=== PATIENT | male | born 1945 | race Caucasian/White ===

== ENCOUNTER → 2019-12-01 09:38 | Outpatient (BNVA) | payer MEDICARE, OTHER, SELFPAY | PROVIDERS: Family Provider Family Medicine; PCP Family Medicine; Visit Provider Family Medicine | DX: E11.9 Type 2 diabetes mellitus without complications (principal); E03.9 Hypothyroidism, unspecified; N39.3 Stress incontinence (female) (male); R35.1 Nocturia | CPT/HCPCS: 81001; 82044; 84443 ==

== ENCOUNTER → 2019-12-02 12:31 | Outpatient (BNVA) | payer MEDICARE, OTHER, SELFPAY | PROVIDERS: Family Provider Family Medicine; PCP Family Medicine; Visit Provider Family Medicine | DX: E11.9 Type 2 diabetes mellitus without complications (principal); E03.9 Hypothyroidism, unspecified; N39.3 Stress incontinence (female) (male); R35.1 Nocturia | CPT/HCPCS: G0103 ==

== ENCOUNTER → 2020-05-10 10:30 | Outpatient (BNVA) | payer MEDICARE, OTHER, SELFPAY | PROVIDERS: Family Provider Family Medicine; PCP Family Medicine; Visit Provider Family Medicine | DX: E11.9 Type 2 diabetes mellitus without complications (principal); E03.9 Hypothyroidism, unspecified | CPT/HCPCS: 80053; 82043; 83036; 84443; 87086 ==

== ENCOUNTER → 2020-05-14 10:10 | Outpatient (BNVA) | payer MEDICARE, OTHER, SELFPAY | PROVIDERS: Family Provider Family Medicine; PCP Family Medicine; Visit Provider Nurse Practitioner Family | DX: N39.0 Urinary tract infection, site not specified (principal); R35.0 Frequency of micturition; K59.00 Constipation, unspecified; M54.5 Low back pain | CPT/HCPCS: 81000 ==

== ENCOUNTER → 2020-05-23 14:24 | Outpatient (BNVA) | payer MEDICARE, OTHER, SELFPAY | PROVIDERS: Family Provider Family Medicine; PCP Family Medicine; Visit Provider Emergency Medicine | DX: N39.0 Urinary tract infection, site not specified (principal) | CPT/HCPCS: 80053; 81000 ==

== ENCOUNTER → 2020-06-19 09:40 | Outpatient (BNVA) | payer MEDICARE, OTHER, SELFPAY | PROVIDERS: Family Provider Family Medicine; PCP Family Medicine; Visit Provider Family Medicine | DX: N39.3 Stress incontinence (female) (male) (principal) | CPT/HCPCS: 81000 ==

== ENCOUNTER 2020-06-22 08:58 | Outpatient (CLI) | payer MEDICARE, OTHER, SELFPAY ==
--- NOTE | 2020-06-22 09:30 | US_ITS ---
WS: [id number] Scrotal and testicular ultrasound, 06/22/2020 Clinical Data: bilateral testicular pain Comparison: Scrotal and testicular ultrasound, 12/24/2018. Findings: The right testes measures 3.0 cm x 3.5 cm x 2.2 cm. The left testes measures 3.3 cm x 2.4 cm x 1.9 cm. There is normal bilateral blood flow with no evidence of orchitis or torsion. No masses or abnormal c alcifications are noted. Both epididymides are normal. There are small bilateral hydroceles and varicoceles. US/US scrotum [id number] Impression: 1. Negative for torsion or orchitis. 2. Negative for epididymitis. 3. Bilateral small hydroceles and bilateral varicoceles.
== END 2020-06-22 08:59 | disposition home or self-care (01) ==
LOC: US 08:59
PROVIDERS: PCP Family Medicine; Visit Provider Family Medicine
DX: N50.811 Right testicular pain (principal); N50.812 Left testicular pain; N43.3 Hydrocele, unspecified; I86.1 Scrotal varices
CPT/HCPCS: 76870